=== PATIENT | female | born 1970 | race Caucasian/White ===

== ENCOUNTER 2019-05-20 10:27 | Inpatient (IN) ==
--- NOTE | 2019-05-20 10:59 | ERNOTE ---
Lower Extremity HPI - Narrative Date of Service: 05/20/19 - General Lower Extremities Pain: leg: right Time Seen by Provider: 05/20/19 10:52 Source: patient Exam Limitations: no limitations - Immun/Allergies/Home Medications Immunizations: IMMUNIZATION HX Immunizations Up to Date Yes History of Influenza Vaccine Yes Hx Pneumococcal Vaccination No Allergies/Adverse Reactions: Allergies Allergy/AdvReac Type Severity Reaction Status Date / Time onion Allergy Severe anaphylacti Verified 05/20/19 10:54 c peanut Allergy Severe anaphylacti Verified 05/20/19 10:54 c aspirin AdvReac Intermediate tunnel Verified 05/20/19 10:54 vision aloe vera AdvReac rash Verified 05/20/19 10:54 animal dander AdvReac RASH Verified 05/20/19 10:54 escitalopram [From Lexapro] AdvReac mental Verified 05/20/19 10:54 changes grass pollen AdvReac rash Verified 05/20/19 10:54 montelukast [From Singulair] AdvReac mental Verified 05/20/19 10:54 status changes naltrexone AdvReac foggy, Verified 05/20/19 10:54 inability to focus wool AdvReac rash Verified 05/20/19 10:54 Home Medications: HOME MEDICATIONS diphenhydramine HCl 25 mg capsule 25 mg PO Q6H PRN cap 03/14/18 [Last Taken 01/20/19] medroxyprogesterone 150 mg/mL intramuscular syringe 150 mg IM [id number] 03/14/18 [Last Taken 01/20/19] naproxen sodium 220 mg tablet 220 mg PO BID 03/14/18 [Last Taken 05/19/19] epinephrine 0.3 mg/0.3 mL injection, auto-injector 0.3 mg IM Q10M PRN #2 ea 03/17/18 [Last Taken Unknown] fluticasone 250 mcg-salmeterol 50 mcg/dose blistr powdr for inhalation 1 inh IH BID #60 ea 03/17/18 [Last Taken 04/20/19] fluticasone propionate 50 mcg/actuation nasal spray,suspension 2 spray ABHILASH DAILY #9.9 g 03/17/18 [Last Taken 04/20/19] loratadine 10 mg tablet 10 mg PO DAILY #30 tab 03/17/18 [Last Taken 03/21/19] Albuterol Sulfate [Proair Hfa] 1 - 2 puff INHALATION Q4H PRN #1 inhaler 07/24/18 [Last Taken 01/20/19] albuterol sulfate 2.5 mg IH QID PRN #75 ml 10/24/18 [Last Taken 01/20/19] hydroxyzine HCl 25 mg tablet 25 mg PO QID PRN #120 tab 10/24/18 [Last Taken 05/17/19] tiotropium bromide 18 mcg capsule with inhalation device 1 cap IH DAILY #30 inh 10/24/18 [Last Taken 03/21/19] - Pain Score Pain Score #1 Pain Score: 10 - History of Present Illness Narrative: The patient is a 48 year old female who presents for right lower extremity pain which has been present since Tuesday. There are associated symptoms of chills, subjective fever and fatigue. The patient reports pain to E, 04/26. There are no alleviating factors. There are aggravating factors of activity and weight bearing. Previous treatments have included: Aleve and Tylenol with minimal relief. The past medical history includes: ADHD, asthma and psoriasis. The social history is positive for current tobacco use. The patient has had no ill contacts. Patient denies injury. Patient states that symptoms began with fatigue and chills on Tuesday evening. Patient states she began noticing redness to right lower leg on with gradually progression of redness and pain. Review of Systems - Review of Systems Constitutional: Present: fever, chills, fatigue EYE: Present: no symptoms reported ENT: Present: no symptoms reported. Absent: ear pain, nasal drainage, sore throat Respiratory: Present: cough. Absent: shortness of breath Cardiology: Present: no symptoms reported. Absent: chest pain Gastrointestinal/Abdominal: Present: diarrhea. Absent: nausea, vomiting, abdominal pain Genitourinary: Present: no symptoms reported. Absent: dysuria Skin: Present: change in color Neurological: Present: no symptoms reported All Other Systems: All systems neg except as marked Medical History (Last Reviewed 05/20/19 @ 10:58 by HÉCTOR Dunne) Shoulder pain, right (Resolved) Onset Date: ~2007 work comp Rhinitis (Chronic) Onset Date: ~07/24/15 Psoriasis (Chronic) Onset Date: ~11/24/17 Obesity (Chronic) Onset Date: ~09/16/15 Fatigue (Chronic) Onset Date: ~09/16/15 Excessive daytime sleepiness (Chronic) Onset Date: ~09/16/15 Dry eyes (Chronic) Onset Date: ~08/13/15 Chronic urticaria (Chronic) Onset Date: ~11/24/17 Asthma (Chronic) Onset Date: ~08/13/15 ADHD (Chronic) Onset Date: ~11/24/17 Tobacco abuse Onset Date: ~07/24/15 Surgical History: Surgical History (Last Reviewed 05/20/19 @ 10:58 by HÉCTOR Dunne) History of shoulder surgery Onset Date: ~06/2008 arthroscopic right shoulder. Family History: Family History (Last Reviewed 05/20/19 @ 10:58 by HÉCTOR Dunne) Other No pertinent family history Social History: (Last Reviewed 05/20/19 @ 10:58 by HÉCTOR Dunne) Social History: adopted: Yes Marital status: Single household members: children number of children: 2 current occupational status: unemployed Service: No Tobacco: Smoking Status: Current every day smoker Alcohol: alcohol intake: current Substance Use: substance use type: does not use Dietary Habits: caffeine: Yes Physical Exam - Physical Exam General Appearance: Present: wd/wn, alert, moderate distress Head Exam: Present: normal inspection Eye Exam: Normal inspection: bilateral Neck: Present: normal inspection Respiratory: Present: no respiratory distress, normal breath sounds, no accessory muscle use, lungs clear Cardiovascular/Chest: Present: no murmur, tachycardia Peripheral Pulses: N=norm/S=strong/W=weak/B=bound/A=absent: Dorsalis-pedis (R): Weak Gastrointestinal/Abdominal: Present: normal bowel sounds, nontender, nondistended, soft, no organomegaly Extremity Exam: Present: extremity edema - diffuse 3+ pitting edema to RLE Neurological Exam: Present: alert, oriented, normal mood/affect, no motor/sens ory deficits Skin Exam: Present: normal color, warm/dry, other - circumferential erythema with pinpoint area of weeping clear drainage to anterior lateral mid lower leg, erythema and edema to proximal to mid lower extremity with extention to dorsal foot Progress - Date and Time Seen: Date and Time: 05/20/19 12:30 Reviewed results with patient and due to severity of pain, tachycardia and progression of infection would like to admit for IV hydration and antibiotic therapy. Patient ok with admission. Discussed case with and accepted for admission. Informed that IV Rocephin was initiated in ER and reports will review chart and evaluate patient for need for additional medication. - Results and Orders Patient's Lab Results:: I have reviewed the patient's lab results. - Vital Signs Patient's Vital Signs:: I have reviewed the patient's vital signs. Vital Signs: Vital Signs 05/20/19 10:53 05/20/19 10:55 Temperature 37.5 C Pulse Rate 133 H Respiratory Rate 16 Blood Pressure 164/75 H 164/75 H O2 Sat by Pulse Oximetry 98 - X-Ray X-Ray #1 X-Ray: tibula/fibula Interpretation: Reviewed by me X-ray Comments: IMPRESSION: NO SIGNIFICANT OSSEOUS PATHOLOGY IDENTIFIED. Electronically signed by Pedro Petty M.D.. - Progress/Reassessment Chief Complaint: Lower Extremity Pain/ Injury Progress:: Improved Departure Clinical Impression: Cellulitis Qualifiers: Site of cellulitis: extremity Site of cellulitis of extremity: lower extremity Laterality: right Qualified Code(s): L03.115 - Cellulitis of right lower limb - Departure Disposition: Still a patient Condition: Stable
[2019-05-20] MEDS ORDERED: NORMAL SALINE 1,000 ML IV PRN (11:05)
[2019-05-20] MEDS ORDERED: MORPHINE SULFATE 2 MG/ML DISP.SYRIN IV ONE (11:13)
[2019-05-20 11:19] LABS: Hematocrit 41.9 % (37.0-47.0); Hemoglobin 13.8 gm/dL (12.5-16.0); Mean Cell Volume 86.6 fl (78-100); Mean Corpuscular Hemoglobin 28.5 pg (27-31); Mean Corpuscular Hgb Conc 32.9 g/dl (32-36); Mean Platelet Volume 9.1 fl (8-12.5); Neutrophil # 16.2 K/mm3 (1.3-6.0); Neutrophil % 86.8 % (42-75.0); Platelet Count 292 K/mm3 (150-450); Red Blood Count 4.84 M/mm3 (4.2-5.4); Red Cell Distribution Width 14.1 % (11.5-14.0); White Blood Count 18.6 K/mm3 (4.0-10.5)
[2019-05-20 11:37] LABS: Albumin * 2.8 gm/dl (3.4-5.0); Anion Gap 13.6 mmol/L (6.8-13.8); BUN/Creatinine Ratio 10.4 (9.0-21.6); Bilirubin, Total 0.6 mg/dL (0.0-1.1); Ca. Corrected For Albumin 9.1 mg/dL (8.4-10.2); Calcium * 8.5 mg/dL (7.9-10.9); Carbon Dioxide 25.9 mmol/L (24-32.6); Potassium 3.5 mmol/L (3.4-4.6); Total Protein 8.4 gm/dL (6.2-8.2)
[2019-05-20] MEDS ORDERED: MORPHINE SULFATE 4 MG/ML SYRG IV ONE (11:49)
[2019-05-20] MEDS ORDERED: cefTRIAXone SODIUM 1,000 MG/100 ML BAG IV ONE (12:06)
[2019-05-20] MEDS ORDERED: NORMAL SALINE 1,000 ML IV ONE (12:43)
[2019-05-20] MEDS ORDERED: NON-FORMULARY 1 DOSE DOSE (Albuterol Sulfate 2.5 MG) IH PRN (13:40)
[2019-05-20] MEDS ORDERED: hydrOXYzine HCL 25 MG TABLET PO PRN (13:40)
[2019-05-20] MEDS ORDERED: ALBUTEROL SULFATE 2.5 MG/0.5 ML VIAL.NEB IH PRN (13:40)
[2019-05-20] MEDS ORDERED: CYCLOBENZAPRINE HCL 10 MG TABLET PO PRN (13:40)
[2019-05-20] MEDS ORDERED: oxyCODONE HCL 5 MG TABLET PO PRN (13:48)
[2019-05-20] MEDS: ACETAMINOPHEN 500 MG TABLET PO PRN ×2 (14:09→22:51)
[2019-05-20] MEDS: ENOXAPARIN SODIUM 40 MG/0.4 ML SYRG SC SCH (14:18)
[2019-05-20] MEDS ORDERED: POLYVINYL ALCOHOL 150 DROP BTL OP PRN (14:25)
[2019-05-20] MEDS ORDERED: POLYVINYL ALCOHOL 150 DROP BTL OP SCH (15:00)
--- NOTE | 2019-05-20 15:12 | HP ---
Chief Complaint - Chief Complaint Date of Service: 05/20/19 Time of Service: 14:15 Chief Complaint: Cellulitis right lower extremity History of Present Illness: Patrizia Fagan is a 48-year-old obese white female who had onset of fever and chills and leg pain on Tuesday. Is progressed now to the point she cannot put weightbearing on the right leg because of marked pain there. She is never had DVT before and never had cellulitis before. She has had a fever to 39 C. She has a history of autoimmune disease. She has frequent open sores on her legs and there are several superficial ones on the right lower extremity in the area of cellulitis. The left leg looks normal. Medical History (Last Reviewed 05/20/19 @ 13:42 by Zenobia Garza RN) Shoulder pain, right (Resolved) Onset Date: ~2007 work comp Rhinitis (Chronic) Onset Date: ~07/24/15 Psoriasis (Chronic) Onset Date: ~11/24/17 Obesity (Chronic) Onset Date: ~09/16/15 Fatigue (Chronic) Onset Date: ~09/16/15 Excessive daytime sleepiness (Chronic) Onset Date: ~09/16/15 Dry eyes (Chronic) Onset Date: ~08/13/15 Chronic urticaria (Chronic) Onset Date: ~11/24/17 Asthma (Chronic) Onset Date: ~08/13/15 ADHD (Chronic) Onset Date: ~11/24/17 Tobacco abuse Onset Date: ~07/24/15 Surgical History: Surgical History (Last Reviewed 05/20/19 @ 13:42 by Zenobia Garza RN) History of shoulder surgery Onset Date: ~06/2008 arthroscopic right shoulder. Family History: Family History (Last Reviewed 05/20/19 @ 10:58 by HÉCTOR Dunne) Other No pertinent family history Social History: (Last Reviewed 05/20/19 @ 13:42 by Zenobia Garza RN) Social History: adopted: Yes Marital status: Single household members: children number of children: 2 current occupational status: unemployed Service: No Tobacco: Smoking Status: Current every day smoker Alcohol: alcohol intake: current Substance Use: substance use type: does not use Dietary Habits: caffeine: Yes Review Of Systems (GEN) - Review of Systems Generalized/Overall Review: Present: Weakness, Chills, Fever, Malaise EENTM: Present: Eye Pain - She uses eyedrops as needed. Respiratory: Present: No Symptoms Reported Cardiac: Present: No Symptoms Reported Abdominal: Present: No Symptoms Reported Genitourinary: Present: No Symptoms Reported Musculoskeletal: Present: No Symptoms Reported Neurological: Present: No Symptoms Reported Skin: Present: Other - Erythema with palpable fever, edema, and pain on palpation in the right lower extremity below the knee. Immunizations: IMMUNIZATION HX Immunizations Up to Date Yes History of Influenza Vaccine Yes Hx Pneumococcal Vaccination No Allergies/Adverse Reactions: Allergies Allergy/AdvReac Type Severity Reaction Status Date / Time onion Allergy Severe anaphylacti Verified 05/20/19 10:54 c peanut Allergy Severe anaphylacti Verified 05/20/19 10:54 c aspirin AdvReac Intermediate tunnel Verified 05/20/19 10:54 vision aloe vera AdvReac rash Verified 05/20/19 10:54 animal dander AdvReac RASH Verified 05/20/19 10:54 escitalopram [From Lexapro] AdvReac mental Verified 05/20/19 10:54 changes grass pollen AdvReac rash Verified 05/20/19 10:54 montelukast [From Singulair] AdvReac mental Verified 05/20/19 10:54 status changes naltrexone AdvReac foggy, Verified 05/20/19 10:54 inability to focus wool AdvReac rash Verified 05/20/19 10:54 Home Medications: HOME MEDICATIONS diphenhydramine HCl 25 mg capsule 25 mg PO Q6H PRN cap 03/14/18 [Last Taken Unknown] medroxyprogesterone 150 mg/mL intramuscular syringe 150 mg IM [id number] 03/14/18 [Last Taken Unknown] naproxen sodium 220 mg tablet 220 mg PO BID 03/14/18 [Last Taken Unknown] polyvinyl alcohol-povidone 0.5 %-0.6 % eye drops drp OP Q2HWA ml 03/14/18 [Last Taken Unknown] epinephrine 0.3 mg/0.3 mL injection, auto-injector 0.3 mg IM Q10M PRN #2 ea 03/17/18 [Last Taken Unknown] fluticasone 250 mcg-salmeterol 50 mcg/dose blistr powdr for inhalation 1 inh IH BID #60 ea 03/17/18 [Last Taken Unknown] fluticasone propionate 50 mcg/actuation nasal spray,suspension 2 spray ABHILASH DAILY #9.9 g 03/17/18 [Last Taken Unknown] loratadine 10 mg tablet 10 mg PO DAILY #30 tab 03/17/18 [Last Taken Unknown] Albuterol Sulfate [Proair Hfa] 1 - 2 puff INHALATION Q4H PRN #1 inhaler 07/24/18 [Last Taken Unknown] albuterol sulfate 2.5 mg IH QID PRN #75 ml 10/24/18 [Last Taken Unknown] betamethasone valerate 0.1 % topical cream 1 applic TP BID #45 g 10/24/18 [Last Taken Unknown] cyclobenzaprine 5 mg tablet 5 mg PO TID PRN #30 tab 10/24/18 [Last Taken Unknown] hydroxyzine HCl 25 mg tablet 25 mg PO QID PRN #120 tab 10/24/18 [Last Taken Unknown] tiotropium bromide 18 mcg capsule with inhalation device 1 cap IH DAILY #30 inh 10/24/18 [Last Taken Unknown] Exam - Exam Vital Signs: Vital Signs - Last Taken Temp 39.2 C H 05/20/19 13:24 Pulse 122 H 05/20/19 13:24 Resp 25 H 05/20/19 13:24 BP 115/72 05/20/19 13:24 Pulse Ox 98 05/20/19 12:33 Constitutional: Present: Alert, Oriented x3, Cooperative, Well developed, Well nourished, No distress ENT Exam: Present: normal ENT inspection, hearing grossly normal, pharynx normal Eye Exam: bilateral eye: normal inspection, PERRL, EOMI, other - Conjunctival erythema Neck: Present: non-tender, full range of motion, supple, normal inspection, trachea midline Back Exam: Present: normal inspection, no CVA tenderness, no vertebral tenderness Breasts: Present: Exam deferred, Nontender Respiratory: Present: chest non-tender, lungs clear, normal breath sounds, no re spiratory distress, no accessory muscle use Cardiovascular/Chest: Present: normal peripheral pulses, regular rate, rhythm, no chest tenderness, edema - In the right lower extremity Peripheral Pulses: carotid (R): 2+, carotid (L): 2+, dorsalis-pedis (R): 2+, dorsalis-pedis (L): 2+, radial (R): 2+, radial (L): 2+ Abdomen: Present: Normal bowel sounds, soft, nontender, nondistended, no rebound tenderness, no hepatospenomegaly, no masses, obese /Rectal: Present: Exam deferred Extremity: Present: normal range of motion, inflammation, lower extremity edema, leg pain, swelling - All in the right lower extremity Skin Exam: Present: normal color, other - Erythema in the right lower extremity Lymphatic: Present: no adenopathy Neurologic: 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: 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 tested, normal cerebellar test, no motor/sensory deficits, alert, normal mood/affect, oriented x 3 Appearance: Present: appropriate appearance, appropriate insight, neat, no memory impairment Eye contact: Present: cooperative, good eye contact, normal speech Thoughts: Present: normal thought pattern, no apparent hallucination Diagnostic Studies: Abnormal Lab Results 05/20/19 05/20/19 Range/Units 11:11 11:11 WBC 18.6 H (4.0-10.5) K/mm3 RDW 14.1 H (11.5-14.0) % Immature Gran # (Auto) 0.08 H (0.000-0.0310) K/mm3 Neutrophils % 86.8 H (42-75.0) % Lymphocytes % 6.3 L (20-51) % Neutrophils # 16.2 H (1.3-6.0) K/mm3 Lymphocytes # 1.17 L (1.5-3.5) k/mm3 Monocytes # 1.1 H (0.0-1.0) k/mm3 Est GFR (Non-Af Amer) 59 L (60-130) mL/min Random Glucose 120 H (70-110) mg/dL ALT 17 L (19-67) U/L Alkaline Phosphatase 187 H (50-170) U/L C-Reactive Prot, Quant 48.0 H (0.0-0.9) mg/dL Total Protein 8.4 H (6.2-8.2) gm/dL Albumin 2.8 L (3.4-5.0) gm/dl Laboratory Results WBC 18.6 K/mm3 (4.0-10.5) H 05/20/19 11:11 RBC 4.84 M/mm3 (4.2-5.4) 05/20/19 11:11 Hgb 13.8 gm/dL (12.5-16.0) 05/20/19 11:11 Hct 41.9 % (37.0-47.0) 05/20/19 11:11 MCV 86.6 fl (78-100) 05/20/19 11:11 MCH 28.5 pg (27-31) 05/20/19 11:11 MCHC 32.9 g/dl (32-36) 05/20/19 11:11 RDW 14.1 % (11.5-14.0) H 05/20/19 11:11 Plt Count 292 K/mm3 (150-450) 05/20/19 11:11 MPV 9.1 fl (8-12.5) 05/20/19 11:11 Immature Gran % (Auto) 0.40 % (0.001-0.429) 05/20/19 11:11 Immature Gran # (Auto) 0.08 K/mm3 (0.000-0.0310) H 05/20/19 11:11 Neutrophils % 86.8 % (42-75.0) H 05/20/19 11:11 Lymphocytes % 6.3 % (20-51) L 05/20/19 11:11 Monocytes % 6.1 % (0.0-9) 05/20/19 11:11 Eosinophils % 0.2 % (0.0-3.0) 05/20/19 11:11 Basophils % 0.2 % (0.0-1.0) 05/20/19 11:11 Nucleated RBC % 0.0 k/mm3 (0-1) 05/20/19 11:11 Neutrophils # 16.2 K/mm3 (1.3-6.0) H 05/20/19 11:11 Lymphocytes # 1.17 k/mm3 (1.5-3.5) L 05/20/19 11:11 Monocytes # 1.1 k/mm3 (0.0-1.0) H 05/20/19 11:11 Eosinophils # 0.0 k/mm3 (0.0-0.7) 05/20/19 11:11 Absolute Basophils 0.0 k/mm3 (0.0-0.1) 05/20/19 11:11 Sodium 133 mmol/L (132-142) 05/20/19 11:11 Plasma Sodium 133 mmol/L (130-142) 05/20/19 11:11 Potassium 3.5 mmol/L (3.4-4.6) D 05/20/19 11:11 Chloride 97 mmol/L (97-106) 05/20/19 11:11 Carbon Dioxide 25.9 mmol/L (24-32.6) 05/20/19 11:11 Anion Gap 13.6 mmol/L (6.8-13.8) 05/20/19 11:11 BUN 11 mg/dL (3-23) 05/20/19 11:11 Creatinine 1.06 mg/dL (0.4-1.4) 05/20/19 11:11 Est GFR (Non-Af Amer) 59 mL/min (60-130) L 05/20/19 11:11 BUN/Creatinine Ratio 10.4 (9.0-21.6) 05/20/19 11:11 Random Glucose 120 mg/dL (70-110) H 05/20/19 11:11 Lactic Acid, Venous 2.0 mmol/L (0.4-2.0) 05/20/19 11:11 Calcium 8.5 mg/dL (7.9-10.9) 05/20/19 11:11 Calcium Adj for Albumin 9.1 mg/dL (8.4-10.2) 05/20/19 11:11 Total Bilirubin 0.6 mg/dL (0.0-1.1) 05/20/19 11:11 AST 17 U/L (0-48) 05/20/19 11:11 ALT 17 U/L (19-67) L 05/20/19 11:11 Alkaline Phosphatase 187 U/L (50-170) H 05/20/19 11:11 Creatine Kinase 39 U/L (0-259) 05/20/19 11:11 C-Reactive Prot, Quant 48.0 mg/dL (0.0-0.9) H 05/20/19 11:11 Total Protein 8.4 gm/dL (6.2-8.2) H 05/20/19 11:11 Albumin 2.8 gm/dl (3.4-5.0) L 05/20/19 11:11 Assessment/Plan - Narrative Narrative: 1. IV Rocephin 1 g twice daily 2. Hydromorphone 4 mg every 4 hours as needed pain. Note she has a hypersensitivity reaction to hydrocodone, oxycodone, and codeine. She was given 4 mg of morphine in the emergency room which she tolerated well but she says did not help her pain any. 3. Keep leg elevated 4. Anticoagulate with enoxaparin 5. Borders of the cellulitis have been marked for reference comparison starting tomorrow. - Assessment/Plan (1) Musculoskeletal pain Problem: Acute (2) Cellulitis Problem: Acute Qualifiers: Site of cellulitis: extremity Site of cellulitis of extremity: lower extremity Laterality: right Qualified Code(s): L03.115 - Cellulitis of right lower limb (3) Psoriasis Problem: Chronic (4) Dry eyes Problem: Chronic
[2019-05-20] MEDS: FLUTICASONE PROPION/SALMETEROL 14 PUFF DISK.W.DEV IH SCH (21:06)
[2019-05-20] MEDS: BETAMETHASONE VALERATE 15 APPL TUBE TP SCH (21:12)
[2019-05-20] MEDS: HYDROmorphone HCL 2 MG TABLET PO PRN (21:16)
[2019-05-21] MEDS: HYDROmorphone HCL 2 MG TABLET PO PRN ×3 (04:55→20:13)
[2019-05-21] MEDS: BETAMETHASONE VALERATE 15 APPL TUBE TP SCH ×2 (08:05→20:14)
[2019-05-21] MEDS: FLUTICASONE PROPION/SALMETEROL 14 PUFF DISK.W.DEV IH SCH ×2 (08:05→20:14)
[2019-05-21] MEDS: ACETAMINOPHEN 500 MG TABLET PO PRN ×2 (08:05→23:32)
[2019-05-21] MEDS: LORATADINE 10 MG TABLET PO SCH (08:06)
[2019-05-21] MEDS: TIOTROPIUM BROMIDE 5 CAP INHALER IH SCH (08:06)
[2019-05-21] MEDS: FLUTICASONE PROPIONATE 120 SPRAY INHALER NS SCH (08:06)
--- NOTE | 2019-05-21 08:50 | PN ---
Subjective - Date and Time Seen Date: 05/21/19 Time: 08:41 Objective - Review of Systems Generalized/Overall Review: Reports: Chills, Fever, Fatigue EENTM: Reports: No Symptoms Reported Respiratory: Reports: No Symptoms Reported Cardiac: Reports: No Symptoms Reported Abdominal: Reports: No Symptoms Reported Genitourinary Symptoms: Reports: No Symptoms Reported Musculoskeletal Complaints: Reports: Other - Right lower extremity patient pain and tenderness Neurological: Reports: No Symptoms Reported Skin: Reports: Change in Color, Other - Significant erythema and tenderness of right lower extremity Endocrine: Reports: No Symptoms Reported - Vitals Vitals: Last Vital Signs Temp 38.2 C H 05/21/19 06:50 Pulse 117 H 05/21/19 06:50 Resp 12 05/21/19 06:50 BP 95/54 05/21/19 06:50 Pulse Ox 93 05/21/19 06:50 - Abnormal Lab Findings Abnormal Lab Findings: Abnormal Lab Results 05/20/19 05/20/19 Range/Units 11:11 11:11 WBC 18.6 H (4.0-10.5) K/mm3 RDW 14.1 H (11.5-14.0) % Immature Gran # (Auto) 0.08 H (0.000-0.0310) K/mm3 Neutrophils % 86.8 H (42-75.0) % Lymphocytes % 6.3 L (20-51) % Neutrophils # 16.2 H (1.3-6.0) K/mm3 Lymphocytes # 1.17 L (1.5-3.5) k/mm3 Monocytes # 1.1 H (0.0-1.0) k/mm3 Est GFR (Non-Af Amer) 59 L (60-130) mL/min Random Glucose 120 H (70-110) mg/dL ALT 17 L (19-67) U/L Alkaline Phosphatase 187 H (50-170) U/L C-Reactive Prot, Quant 48.0 H (0.0-0.9) mg/dL Total Protein 8.4 H (6.2-8.2) gm/dL Albumin 2.8 L (3.4-5.0) gm/dl - Exam Constitutional: Present: Alert, Oriented x3, Cooperative, Well developed, Well nourished, No distress ENT Exam: Present: normal ENT inspection, hearing grossly normal, pharynx normal, TMs normal Breasts: Present: Exam deferred Respiratory: Present: chest non-tender, lungs clear, normal breath sounds, no respiratory distress, no accessory muscle use Cardiovascular/Chest: Present: normal peripheral pulses, regular rate, rhythm, no chest tenderness, no edema, no gallop, no JVD, no murmur, no rub Abdomen: Present: Normal bowel sounds, soft, nontender, nondistended, no rebound tenderness, no hepatospenomegaly, obese /Rectal: Present: Exam deferred Extremity: Present: normal range of motion, no calf tenderness, normal capillary refill, inflammation, lower extremity edema, leg pain, pedal edema, other - Circumferential erythematous, tender, warm to touch, with 3+ pedal edema with adequate pulse of the right lower extremity. 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 However multiple patient continues to be acutely ill multiple fever spikes were reported throughout the night and patient still complains of chills. Her demarcated area of cellulitis of the right lower extremity demonstrate decrease of the infected area and erythema, however she is significantly tender to light touch and appears to be in pain and uncomfortable. Follow-up labs has been ordered to evaluate leukocytosis however given the extent of the patient's infection is apparent that she will need multiple days of inpatient treatment with IV antibiotics. Patient has not shown improvement on observation status, therefore we will switch her IV antibiotic to include coverage for MRSA as well as gram negatives and keep her for additional days in the hospital. Patient's toes. And interdigital spaces were examined at bedside during today's rounds but no port of entry was discovered. She denies being treated for cellulitis in the past. - Problems/Diagnosis (1) Cellulitis of right lower extremity Problem: Acute
[2019-05-21 08:56] LABS: Hematocrit 35.2 % (37.0-47.0); Hemoglobin 11.4 gm/dL (12.5-16.0); Mean Cell Volume 86.5 fl (78-100); Mean Corpuscular Hgb Conc 32.4 g/dl (32-36); Mean Platelet Volume 9.2 fl (8-12.5); Neutrophil # 11.3 K/mm3 (1.3-6.0); Neutrophil % 82.9 % (42-75.0); Platelet Count 235 K/mm3 (150-450); Red Blood Count 4.07 M/mm3 (4.2-5.4); Red Cell Distribution Width 14.2 % (11.5-14.0); White Blood Count 13.6 K/mm3 (4.0-10.5)
[2019-05-21 09:20] LABS: Albumin * 2.1 gm/dl (3.4-5.0); Anion Gap 14.4 mmol/L (6.8-13.8); Bilirubin, Total 0.3 mg/dL (0.0-1.1); Ca. Corrected For Albumin 9.3 mg/dL (8.4-10.2); Calcium * 8.1 mg/dL (7.9-10.9); Carbon Dioxide 24.9 mmol/L (24-32.6); Potassium 3.3 mmol/L (3.4-4.6)
[2019-05-21] MEDS: CEFTAROLINE FOSAMIL ACETATE 600 MG in DEXTROSE 5 % IN WATER 100 ML IV SCH ×4 (09:33→20:14)
[2019-05-21] MEDS: ENOXAPARIN SODIUM 40 MG/0.4 ML SYRG SC SCH (13:03)
--- NOTE | 2019-05-21 14:42 | PN ---
Subjective - Date and Time Seen Date: 05/21/19 Time: 10:30 Subjective Narrative: Kimberly had some fever early this morning to 38.2 but has been afebrile the rest of the day. She still having a lot of pain when weightbearing on the right leg. Physical therapy has worked with her today and she is walking with a walker albeit with discomfort. She is having some stair safety training today. There is seems to be some interval improvement in the appearance of the leg is that the erythema has contracted away from the ink demarcated margins. There is still fever, calor, rubor, dolor present. The white count was 18,600 on admission and is 13,600 this morning. Hemoglobin is dropped from 13.8g to 11.4 g this morning. Objective - Review of Systems Generalized/Overall Review: Reports: Weakness, Fever EENTM: Reports: No Symptoms Reported Respiratory: Reports: No Symptoms Reported, Cough Cardiac: Reports: No Symptoms Reported Abdominal: Reports: No Symptoms Reported Genitourinary Symptoms: Reports: No Symptoms Reported Musculoskeletal Complaints: Reports: Other - Right lower leg pain Neurological: Reports: No Symptoms Reported Skin: Reports: Other - Cellulitis right lower extremity Endocrine: Reports: No Symptoms Reported - Vitals Vitals: Last Vital Signs Temp 36.7 C 05/21/19 14:29 Pulse 114 H 05/21/19 14:29 Resp 20 05/21/19 14:29 BP 107/60 05/21/19 14:29 Pulse Ox 95 05/21/19 14:29 - Abnormal Lab Findings Abnormal Lab Findings: Abnormal Lab Results 05/21/19 05/21/19 Range/Units 08:54 08:54 WBC 13.6 H D (4.0-10.5) K/mm3 RBC 4.07 L (4.2-5.4) M/mm3 Hgb 11.4 L (12.5-16.0) gm/dL Hct 35.2 L (37.0-47.0) % RDW 14.2 H (11.5-14.0) % Immature Gran # (Auto) 0.05 H (0.000-0.0310) K/mm3 Neutrophils % 82.9 H (42-75.0) % Lymphocytes % 9.0 L (20-51) % Neutrophils # 11.3 H (1.3-6.0) K/mm3 Lymphocytes # 1.22 L (1.5-3.5) k/mm3 Potassium 3.3 L (3.4-4.6) mmol/L Anion Gap 14.4 H (6.8-13.8) mmol/L Random Glucose 172 H D (70-110) mg/dL ALT 11 L (19-67) U/L Albumin 2.1 L (3.4-5.0) gm/dl - Exam Constitutional: Present: Alert, Oriented x3, Cooperative, Well developed, Well nourished, Mild distress ENT Exam: Present: normal ENT inspection, hearing grossly normal, pharynx normal Neck: Present: non-tender, full range of motion, supple, normal inspection, trachea midline Breasts: Present: Exam deferred Respiratory: Present: chest non-tender, lungs clear, normal breath sounds, no respiratory distress, no accessory muscle use Cardiovascular/Chest: Present: normal peripheral pulses, regular rate, rhythm, no chest tenderness, no edema, no gallop, no JVD, no murmur, no rub Abdomen: Present: Normal bowel sounds, soft, nontender, nondistended, no rebound tenderness, no hepatospenomegaly, no masses /Rectal: Present: Exam deferred, External genitalia normal Extremity: Present: normal range of motion, calf tenderness, inflammation, lower extremity edema, leg pain Skin Exam: Present: normal color - Except over the right lower extremity which is a deep red to violaceous color. Lymphatic: Present: no adenopathy Appearance: Present: appropriate appearance, appropriate insight, neat, no memory impairment Eye contact: Present: cooperative, good eye contact, normal speech Thoughts: Present: normal thought pattern, no apparent hallucination Assessment/Plan - Problems/Diagnosis (1) Musculoskeletal pain Problem: Acute (2) Cellulitis Problem: Acute Qualifiers: Site of cellulitis: extremity Site of cellulitis of extremity: lower extremity Laterality: right Qualified Code(s): L03.115 - Cellulitis of right lower limb (3) Psoriasis Problem: Chronic (4) Dry eyes Problem: Chronic
[2019-05-22 06:25] LABS: Hematocrit 32.9 % (37.0-47.0); Hemoglobin 10.8 gm/dL (12.5-16.0); Mean Cell Volume 86.8 fl (78-100); Mean Corpuscular Hemoglobin 28.5 pg (27-31); Mean Corpuscular Hgb Conc 32.8 g/dl (32-36); Mean Platelet Volume 9.3 fl (8-12.5); Neutrophil % 76.1 % (42-75.0); Platelet Count 245 K/mm3 (150-450); Red Blood Count 3.79 M/mm3 (4.2-5.4); Red Cell Distribution Width 14.3 % (11.5-14.0); White Blood Count 10.5 K/mm3 (4.0-10.5)
[2019-05-22] MEDS: HYDROmorphone HCL 2 MG TABLET PO PRN ×3 (08:15→20:43)
[2019-05-22] MEDS: LORATADINE 10 MG TABLET PO SCH (08:16)
[2019-05-22] MEDS: FLUTICASONE PROPIONATE 120 SPRAY INHALER NS SCH (08:20)
[2019-05-22] MEDS: FLUTICASONE PROPION/SALMETEROL 14 PUFF DISK.W.DEV IH SCH ×2 (08:20→20:44)
[2019-05-22] MEDS: TIOTROPIUM BROMIDE 5 CAP INHALER IH SCH (08:21)
[2019-05-22] MEDS: BETAMETHASONE VALERATE 15 APPL TUBE TP SCH ×2 (08:22→20:44)
[2019-05-22] MEDS: CEFTAROLINE FOSAMIL ACETATE 600 MG in DEXTROSE 5 % IN WATER 100 ML IV SCH ×4 (08:25→20:50)
[2019-05-22] MEDS: ENOXAPARIN SODIUM 40 MG/0.4 ML SYRG SC SCH (13:19)
[2019-05-22] MEDS: ACETAMINOPHEN 500 MG TABLET PO PRN ×2 (14:28→20:44)
--- NOTE | 2019-05-22 18:32 | PN ---
Subjective - Date and Time Seen Date: 05/22/19 Time: 08:10 Subjective Narrative: Kimberly had fever to 38.1 again last night. She also continues to have severe pain in that right lower extremity below the knee. It does not appear any worse. X-ray done in the emergency room did not show any bony injury or periosteal changes. The admitting diagnosis included sepsis and almost certainly came from the infection and her right lower extremity. The blood cultures are no growth at 48 hours x 2. She still cannot stand and bear weight on that right leg. She is learning to use a walker. One will be delivered from [facility] tomorrow if she is going home tomorrow. Objective - Review of Systems Generalized/Overall Review: Reports: No Symptoms Reported EENTM: Reports: No Symptoms Reported Respiratory: Reports: No Symptoms Reported Cardiac: Reports: No Symptoms Reported Abdominal: Reports: No Symptoms Reported Genitourinary Symptoms: Reports: No Symptoms Reported Musculoskeletal Complaints: Reports: Other - Cellulitis right lower extremity Neurological: Reports: No Symptoms Reported Skin: Reports: No Symptoms Reported Endocrine: Reports: No Symptoms Reported - Vitals Vitals: Last Vital Signs Temp 36.8 C 05/22/19 17:10 Pulse 91 05/22/19 17:10 Resp 20 05/22/19 17:10 BP 140/78 H 05/22/19 17:49 Pulse Ox 93 05/22/19 17:10 - Abnormal Lab Findings Abnormal Lab Findings: Abnormal Lab Results 05/22/19 05/22/19 Range/Units 06:15 06:15 RBC 3.79 L (4.2-5.4) M/mm3 Hgb 10.8 L (12.5-16.0) gm/dL Hct 32.9 L (37.0-47.0) % RDW 14.3 H (11.5-14.0) % Immature Gran % (Auto) 0.60 H (0.001-0.429) % Immature Gran # (Auto) 0.06 H (0.000-0.0310) K/mm3 Neutrophils % 76.1 H (42-75.0) % Lymphocytes % 12.3 L (20-51) % Neutrophils # 8.0 H (1.3-6.0) K/mm3 Lymphocytes # 1.29 L (1.5-3.5) k/mm3 C-Reactive Prot, Quant 35.7 H (0.0-0.9) mg/dL - EKG/Xray Findings EKG read: Reviewed by me XRAY: leg - Exam Constitutional: Present: Alert, Oriented x3, Cooperative, Well developed, Well nourished, Moderate distress ENT Exam: Present: normal ENT inspection, hearing grossly normal, pharynx normal, TMs normal Neck: Present: non-tender, full range of motion, supple, normal inspection Breasts: Present: Exam deferred Respiratory: Present: chest non-tender, lungs clear, normal breath sounds Cardiovascular/Chest: Present: normal peripheral pulses, regular rate, rhythm, no chest tenderness, no edema, no gallop, no JVD, no murmur, no rub Abdomen: Present: Normal bowel sounds, soft, nontender, nondistended, no rebound tenderness, no hepatospenomegaly, no masses /Rectal: Present: Exam deferred Extremity: Present: non-tender, other - Rubor, calor, fever, dolor, persist in the right lower extremity with no evidence of interval improvement. 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 Continue current IV antibiotic therapy. Continue to try to progress with weight and weightbearing on the right leg. Monitor temperature through the night. - Problems/Diagnosis (1) Musculoskeletal pain Problem: Acute (2) Cellulitis Problem: Acute Qualifiers: Site of cellulitis: extremity Site of cellulitis of extremity: lower extremity Laterality: right Qualified Code(s): L03.115 - Cellulitis of right lower limb (3) Psoriasis Problem: Chronic (4) Dry eyes Problem: Chronic (5) Sepsis Problem: Acute Qualifiers: Sepsis type: sepsis due to unspecified organism Sepsis acute organ dysfunction status: without acute organ dysfunction Qualified Code(s): A41.9 - Sepsis, unspecified organism
[2019-05-23] MEDS: HYDROmorphone HCL 2 MG TABLET PO PRN ×4 (03:29→22:07)
[2019-05-23] MEDS: ACETAMINOPHEN 500 MG TABLET PO PRN ×3 (03:34→14:39)
[2019-05-23] MEDS: CEFTAROLINE FOSAMIL ACETATE 600 MG in DEXTROSE 5 % IN WATER 100 ML IV SCH ×4 (08:34→21:26)
[2019-05-23] MEDS: FLUTICASONE PROPION/SALMETEROL 14 PUFF DISK.W.DEV IH SCH ×2 (08:40→21:26)
[2019-05-23] MEDS: FLUTICASONE PROPIONATE 120 SPRAY INHALER NS SCH (08:43)
[2019-05-23] MEDS: LORATADINE 10 MG TABLET PO SCH (08:44)
[2019-05-23] MEDS: TIOTROPIUM BROMIDE 5 CAP INHALER IH SCH (08:45)
[2019-05-23] MEDS: BETAMETHASONE VALERATE 15 APPL TUBE TP SCH ×2 (08:51→21:26)
[2019-05-23 09:33] LABS: Hematocrit 34.6 % (37.0-47.0); Hemoglobin 11.4 gm/dL (12.5-16.0); Mean Cell Volume 86.7 fl (78-100); Mean Corpuscular Hemoglobin 28.6 pg (27-31); Mean Corpuscular Hgb Conc 32.9 g/dl (32-36); Mean Platelet Volume 9.3 fl (8-12.5); Platelet Count 328 K/mm3 (150-450); Red Blood Count 3.99 M/mm3 (4.2-5.4); Red Cell Distribution Width 14.2 % (11.5-14.0)
[2019-05-23 09:39] LABS: Anion Gap 10.7 mmol/L (6.8-13.8); BUN/Creatinine Ratio 16.4 (9.0-21.6); Bilirubin, Total 0.2 mg/dL (0.0-1.1); Ca. Corrected For Albumin 9.7 mg/dL (8.4-10.2); Calcium * 8.4 mg/dL (7.9-10.9); Carbon Dioxide 27.9 mmol/L (24-32.6); Potassium 3.6 mmol/L (3.4-4.6); Total Protein 7.3 gm/dL (6.2-8.2)
[2019-05-23 09:40] LABS: Total Cells Counted 100
[2019-05-23 09:54] LABS: Atypical (Reactive) Lymph 3 % (0-2); Band 3 % (0-2.0); Eosinophil 4 % (0-3); Lymphocyte 20 % (20-51); Monocyte 7 % (0-9); Neutrophil 63 % (42-75)
[2019-05-23 09:57] LABS: Platelet Estimate Normal (NORMAL); RBC Morphology Normal (NORMAL)
[2019-05-23 10:37] LABS: CRP 23.7 mg/dL (0.0-0.9)
[2019-05-23] MEDS: ENOXAPARIN SODIUM 40 MG/0.4 ML SYRG SC SCH (15:39)
--- NOTE | 2019-05-23 20:31 | PN ---
Subjective - Date and Time Seen Date: 05/23/19 Time: 09:15 Subjective Narrative: Kimberly continues to have severe pain in her right lower leg to the point that she cannot bear weight on that leg and is using a walker to get back in fourth to the bathroom. She is now been on IV antibiotics for about 5 days. The leg has a clear yellow oval-shaped area in the middle of the rubor. It is soft and fluctuant. I reviewed the x-ray done in the emergency room and it does not show any bony injury. Nonetheless because of the persistent extended nature of her severe pain in this leg I think I should rule out an abscess. Especially given the change in color of the leg as described above. The MRI was performed and findings are just consistent with severe cellulitis of the leg with dissection of the fascial planes and muscle planes. There is no abscess. I have enco uraged her to get up and walk even though it hurts because I really believe that will speed the healing process. She is going to try to do that. I told her to take her pain medicine before doing so. Anticipate discharging her tomorrow. Objective - Review of Systems Generalized/Overall Review: Reports: No Symptoms Reported EENTM: Reports: No Symptoms Reported Respiratory: Reports: No Symptoms Reported Cardiac: Reports: No Symptoms Reported Abdominal: Reports: No Symptoms Reported Genitourinary Symptoms: Reports: No Symptoms Reported Musculoskeletal Complaints: Reports: Muscle Pain - See chief complaint regarding cellulitis right lower extremity Neurological: Reports: No Symptoms Reported Skin: Reports: Change in Color - There is some change in color of the anterolateral right arndt area. Endocrine: Reports: No Symptoms Reported - Vitals Vitals: Last Vital Signs Temp 37.2 C 05/23/19 17:21 Pulse 98 05/23/19 17:21 Resp 16 05/23/19 17:21 BP 102/70 05/23/19 17:21 Pulse Ox 94 05/23/19 17:21 - Abnormal Lab Findings Abnormal Lab Findings: Abnormal Lab Results 05/23/19 05/23/19 05/23/19 Range/Units 09:22 09:22 09:22 RBC 3.99 L (4.2-5.4) M/mm3 Hgb 11.4 L (12.5-16.0) gm/dL Hct 34.6 L (37.0-47.0) % RDW 14.2 H (11.5-14.0) % Band Neuts % (Manual) 3 H (0-2.0) % Eosinophils % (Manual) 4 H (0-3) % Atypic/Reactive Lymphs 3 H (0-2) % ESR 112 H (0-15) mm/hr Random Glucose 123 H (70-110) mg/dL C-Reactive Prot, Quant 23.7 H (0.0-0.9) mg/dL Albumin 2.0 L (3.4-5.0) gm/dl - Exam Constitutional: Present: Alert, Oriented x3, Cooperative, Well developed, Well nourished, Moderate distress - With weightbearing. Without weightbearing she is only in mild distress., Middle aged, Obese ENT Exam: Present: normal ENT inspection, hearing grossly normal, pharynx normal, TMs normal Neck: Present: non-tender, full range of motion, supple Breasts: Present: Exam deferred Respiratory: Present: chest non-tender Cardiovascular/Chest: Present: normal peripheral pulses Abdomen: Present: Normal bowel sounds /Rectal: Present: Exam deferred - Swelling, redness, fever, pain all in the right lower extremity. 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 Continue IV antibiotics 2. Progress activity 3. Plan on discharging tomorrow - Problems/Diagnosis (1) Musculoskeletal pain Problem: Acute (2) Cellulitis Problem: Acute Qualifiers: Site of cellulitis: extremity Site of cellulitis of extremity: lower extremity Laterality: right Qualified Code(s): L03.115 - Cellulitis of right lower limb (3) Psoriasis Problem: Chronic (4) Dry eyes Problem: Chronic (5) Sepsis Problem: Acute Qualifiers: Sepsis type: sepsis due to unspecified organism Sepsis acute organ dysfunction status: without acute organ dysfunction Qualified Code(s): A41.9 - Sepsis, unspecified organism
[2019-05-24] MEDS: HYDROmorphone HCL 2 MG TABLET PO PRN ×2 (04:32→12:54)
[2019-05-24] MEDS: ACETAMINOPHEN 500 MG TABLET PO PRN ×2 (04:36→13:27)
[2019-05-24] MEDS: FLUTICASONE PROPIONATE 120 SPRAY INHALER NS SCH (09:07)
[2019-05-24] MEDS: LORATADINE 10 MG TABLET PO SCH (09:07)
[2019-05-24] MEDS: BETAMETHASONE VALERATE 15 APPL TUBE TP SCH ×2 (09:07→20:20)
[2019-05-24] MEDS: CEFTAROLINE FOSAMIL ACETATE 600 MG in DEXTROSE 5 % IN WATER 100 ML IV SCH ×4 (09:13→20:20)
[2019-05-24] MEDS: TIOTROPIUM BROMIDE 5 CAP INHALER IH SCH (09:14)
[2019-05-24] MEDS: FLUTICASONE PROPION/SALMETEROL 14 PUFF DISK.W.DEV IH SCH ×2 (09:14→20:20)
[2019-05-24] MEDS: ENOXAPARIN SODIUM 40 MG/0.4 ML SYRG SC SCH (12:57)
--- NOTE | 2019-05-24 17:46 | CONS ---
HPI - General Date of Service: 05/24/19 Source: patient Exam Limitations: no limitations - History of Present Illness Initial Comments: Patrizia is a pleasant 48-year-old female who developed leg pain and swelling on Tuesday. She also developed fevers and chills. This occurred on her right leg. She is concerned she may have had a spider bite. She had pain so significant it was difficult for her to bear weight on the right leg. She was admitted to the hospital and started on IV antibiotics. She also had leukocytosis. Her leukocytosis has improved. The erythema has receded. Timing/Duration: 1 week Severity: moderate Modifying Factors - (Worsens): Reports: movement Modifying Factors - (Improves): Reports: immobilization, medication Associated Symptoms: denies symptoms Allergies/Adverse Reactions: Allergies onion Allergy (Severe, Verified 05/20/19 10:54) anaphylactic peanut Allergy (Severe, Verified 05/20/19 10:54) anaphylactic aspirin Adverse Reaction (Intermediate, Verified 05/20/19 10:54) tunnel vision aloe vera Adverse Reaction (Verified 05/20/19 10:54) rash animal dander Adverse Reaction (Verified 05/20/19 10:54) RASH escitalopram [From Lexapro] Adverse Reaction (Verified 05/20/19 10:54) mental changes grass pollen Adverse Reaction (Verified 05/20/19 10:54) rash montelukast [From Singulair] Adverse Reaction (Verified 05/20/19 10:54) mental status changes naltrexone Adverse Reaction (Verified 05/20/19 10:54) foggy, inability to focus wool Adverse Reaction (Verified 05/20/19 10:54) rash Home Medications: Home Medications Medication Instructions Recorded Last Taken diphenhydramine HCl 25 mg capsule 25 mg PO Q6H PRN cap 03/14/18 01/20/19 medroxyprogesterone 150 mg/mL 150 mg IM [id number] 03/14/18 01/20/19 intramuscular syringe naproxen sodium 220 mg tablet 220 mg PO BID 03/14/18 05/19/19 epinephrine 0.3 mg/0.3 mL 0.3 mg IM Q10M PRN #2 ea 03/17/18 Unknown injection, auto-injector fluticasone 250 mcg-salmeterol 50 1 inh IH BID #60 ea 03/17/18 04/20/19 mcg/dose blistr powdr for inhalation fluticasone propionate 50 2 spray ABHILASH DAILY #9.9 g 03/17/18 04/20/19 mcg/actuation nasal spray,suspension loratadine 10 mg tablet 10 mg PO DAILY #30 tab 03/17/18 03/21/19 Albuterol Sulfate [Proair Hfa] 1 - 2 puff INHALATION Q4H PRN #1 07/24/18 01/20/19 inhaler albuterol sulfate 2.5 mg IH QID PRN #75 ml 10/24/18 01/20/19 hydroxyzine HCl 25 mg tablet 25 mg PO QID PRN #120 tab 10/24/18 05/17/19 tiotropium bromide 18 mcg capsule 1 cap IH DAILY #30 inh 10/24/18 03/21/19 with inhalation device Procedures Other monitoring (01/09/06) Medications - Medications Current Medications: Current Medications Acetaminophen (Tylenol) 500 mg PO Q4H PRN PRN Reason: Mild pain (pain scale 1-3) Stop: 06/19/19 13:48 Last Admin: 05/24/19 13:27 Dose: 500 mg Documented by: Betamethasone Valerate (Betamethasone Valerate Cream) 1 appl TP BID EMERY Stop: 06/19/19 21:01 Last Admin: 05/24/19 09:07 Dose: 1 appl Documented by: Cyclobenzaprine HCl (Flexeril) 5 mg PO TID PRN PRN Reason: muscle spasm Last Admin: 05/20/19 14:09 Dose: 5 mg Documented by: Enoxaparin Sodium (Lovenox) 40 mg SC Q24H EMERY Stop: 06/19/19 13:46 Last Admin: 05/24/19 12:57 Dose: 40 mg Documented by: Fluticasone Propionate (Flonase) 2 spray NS DAILY EMERY Stop: 06/20/19 09:01 Last Admin: 05/24/19 09:07 Dose: 2 spray Documented by: Hydromorphone HCl (Dilaudid) 4 mg PO Q6H PRN PRN Reason: Pain Stop: 06/19/19 14:16 Last Admin: 05/24/19 12:54 Dose: 4 mg Documented by: Sodium Chloride (Sodium Chloride 0.9%) 1,000 mls @ 999 mls/hr IV .Q1H1M PRN PRN Reason: HYDRATION Stop: 06/19/19 11:06 Last Infusion: 05/20/19 12:19 Dose: Infused Documented by: Ceftaroline Fosamil 600 mg/ (Dextrose/Water) 120 mls @ 200 mls/hr IV Q12H [facility] Stop: 06/20/19 08:46 Last Infusion: 05/24/19 09:49 Dose: Infused Documented by: Loratadine (Claritin) 10 mg PO DAILY EMERY Stop: 06/20/19 09:01 Last Admin: 05/24/19 09:07 Dose: 10 mg Documented by: Fluticasone/Salmeterol (Advair 250-50 Diskus) 1 puff IH BID [facility] Stop: 06/19/19 21:01 Last Admin: 05/24/19 09:14 Dose: 1 puff Documented by: Tiotropium [place] (Spiriva) 1 cap IH DAILY EMERY Stop: 06/20/19 09:01 Last Admin: 05/24/19 09:14 Dose: 1 cap Documented by: Review of Systems - Review of Systems Generalized/Overall Review: Present: Weakness, Chills, Fever, Malaise EENTM: Present: No Symptoms Reported Respiratory: Present: No Symptoms Reported Cardiac: Present: No Symptoms Reported Abdominal: Present: No Symptoms Reported Genitourinary: Present: No Symptoms Reported Musculoskeletal: Present: Other - Right lower extremity pain Neurological: Present: No Symptoms Reported Skin: Present: No Symptoms Reported Endocrine: Present: No Symptoms Reported Physical Examination - Exam Vital Signs: Vital Signs - Last Taken Temp 36.5 C 05/24/19 15:08 Pulse 84 05/24/19 10:00 Resp 24 H 05/24/19 15:08 BP 111/77 05/24/19 15:08 Pulse Ox 97 05/24/19 15:08 O2 Oxygen Delivery Method Room Air Constitutional: Present: Alert, Oriented x3, Cooperative, Obese ENT Exam: Present: hearing grossly normal Eye Exam: bilateral eye: normal inspection Neck: Present: supple Breasts: Present: Exam deferred Respiratory: Present: normal breath sounds, no respiratory distress, no accessory muscle use Cardiovascular/Chest: Absent: no edema - Edema in right lower extremity Abdomen: Present: soft, nondistended, obese /Rectal: Present: Exam deferred Extremity: Present: lower extremity edema - Right lower extremity, leg pain - Right lower extremity, other - Erythema with bullae development of the right lower extremity, erythema is receding 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
[2019-05-24] MEDS: KETOROLAC TROMETHAMINE 30 MG/ML VIAL IV PRN (18:51)
--- NOTE | 2019-05-24 20:07 | PN ---
Subjective - Date and Time Seen Date: 05/24/19 Time: 13:15 Subjective Narrative: Patrizia continues to have severe pain in her right lower leg and cannot bear weight on that. She has been on IV antibiotics for nearly a week and most other parameters have improved including her white count and the generalized erythema of the leg. Nonetheless the central area of the redness deep violaceous area and a small vesicle this about 1.5 x 2 cm in size. I have asked Dr. Zhong to see her in consultation to make sure she does not think any thing surgical should be done. She has done that. I reviewed her notes and it is most appreciated hopefully she will be better tomorrow and can go home. She concurs that we should continue with medical management her lab work remains essentially normal. White count has been normalized. Objective - Review of Systems Generalized/Overall Review: Reports: Malaise EENTM: Reports: No Symptoms Reported Respiratory: Reports: No Symptoms Reported Cardiac: Reports: No Symptoms Reported Abdominal: Reports: No Symptoms Reported Genitourinary Symptoms: Reports: No Symptoms Reported Musculoskeletal Complaints: Reports: Other - Right lower extremity pain due to cellulitis Neurological: Reports: No Symptoms Reported Skin: Reports: Other - The skin over the right lower arndt is still reddened with a violaceous hue and a central vesicle as described above. It is extremely tender and she cannot bear weight. Endocrine: Reports: No Symptoms Reported - Vitals Vitals: Last Vital Signs Temp 36.5 C 05/24/19 19:16 Pulse 98 05/24/19 19:16 Resp 20 05/24/19 19:16 BP 124/79 05/24/19 19:16 Pulse Ox 97 05/24/19 19:16 - EKG/Xray Findings XRAY: leg - I have reviewed the MRI of her right lower extremity which shows marked cellulitis but no abscess. - Exam Constitutional: Present: Alert, Oriented x3, Cooperative, Well developed, Well nourished, Moderate distress ENT Exam: Present: normal ENT inspection, hearing grossly normal, pharynx normal, TMs normal Neck: Present: non-tender, full range of motion, supple, normal inspection Breasts: Present: Exam deferred Respiratory: Present: chest non-tender, lungs clear, normal breath sounds, no respiratory distress, no accessory muscle use Cardiovascular/Chest: Present: normal peripheral pulses, regular rate, rhythm, no chest tenderness, no edema - Except in the right lower extremity there is swelling due to the cellulitis, no gallop, no JVD, no murmur, no rub Abdomen: Present: Normal bowel sounds, soft, nontender, nondistended, no rebound tenderness, no hepatospenomegaly, no masses /Rectal: Present: Exam deferred Extremity: Present: normal capillary refill, inflammation, lower extremity edema - In the right lower extremity due to cellulitis., swelling Skin Exam: Present: normal color - Except the right lower extremity Lymphatic: Present: no adenopathy 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 Surgical consultation with Dr. Zhong 2. Continue IV antibiotic therapy 3. I gave a dose of Toradol to see if that would help her walk easier. Results are not known at this dictation. 4. Progress activity as pain allows. 5. Hopefully discharge tomorrow. - Problems/Diagnosis (1) Sepsis Problem: Resolved Qualifiers: Sepsis type: sepsis due to unspecified organism Sepsis acute organ dysfunction status: without acute organ dysfunction Qualified Code(s): A41.9 - Sepsis, unspecified organism (2) Cellulitis Problem: Acute Qualifiers: Site of cellulitis: extremity Site of cellulitis of extremity: lower extremity Laterality: right Qualified Code(s): L03.115 - Cellulitis of right lower limb (3) Pain of right anterior lower extremity Problem: Acute (4) Musculoskeletal pain Problem: Acute (5) Psoriasis Problem: Chronic (6) Dry eyes Problem: Chronic
[2019-05-25] MEDS: KETOROLAC TROMETHAMINE 30 MG/ML VIAL IV PRN ×3 (03:55→19:03)
--- NOTE | 2019-05-25 08:21 | PN ---
Dictated Progress Note - Date and Time Seen: Date: 05/25/19 Time: 08:18 - Progress Note Narrative: Slowly improved, can do toe touch now with wt bearing. Pain slowly getting better Vital Signs - Last Taken Temp 36.0 C 05/25/19 06:33 Pulse 75 05/25/19 06:33 Resp 16 05/25/19 06:33 BP 97/60 05/25/19 06:33 Pulse Ox 97 05/25/19 06:33 NAD erythema is receding, bullae is forming in center of wound, no fluctuance or area to be drained skin warm and dry resp non labored ROS: see HPI Imp: cellulitis- improving Plan: continue antibiotics continue to increase ambulation on lovenox
[2019-05-25 08:43] LABS: Hematocrit 36.4 % (37.0-47.0); Mean Cell Volume 88.1 fl (78-100); Mean Corpuscular Hemoglobin 29.1 pg (27-31); Mean Platelet Volume 9.1 fl (8-12.5); Neutrophil # 5.6 K/mm3 (1.3-6.0); Neutrophil % 67.8 % (42-75.0); Platelet Count 391 K/mm3 (150-450); Red Blood Count 4.13 M/mm3 (4.2-5.4); Red Cell Distribution Width 14.2 % (11.5-14.0); White Blood Count 8.3 K/mm3 (4.0-10.5)
[2019-05-25 08:49] LABS: Albumin * 2.1 gm/dl (3.4-5.0); Anion Gap 12.7 mmol/L (6.8-13.8); Bilirubin, Total 0.2 mg/dL (0.0-1.1); Ca. Corrected For Albumin 9.6 mg/dL (8.4-10.2); Calcium * 8.4 mg/dL (7.9-10.9); Carbon Dioxide 27.4 mmol/L (24-32.6); Potassium 4.1 mmol/L (3.4-4.6); Total Protein 7.8 gm/dL (6.2-8.2)
[2019-05-25] MEDS: BETAMETHASONE VALERATE 15 APPL TUBE TP SCH ×2 (09:09→20:38)
[2019-05-25] MEDS: LORATADINE 10 MG TABLET PO SCH (09:09)
[2019-05-25] MEDS: FLUTICASONE PROPION/SALMETEROL 14 PUFF DISK.W.DEV IH SCH ×2 (09:09→20:37)
[2019-05-25] MEDS: CEFTAROLINE FOSAMIL ACETATE 600 MG in DEXTROSE 5 % IN WATER 100 ML IV SCH ×4 (09:09→20:42)
[2019-05-25] MEDS: FLUTICASONE PROPIONATE 120 SPRAY INHALER NS SCH (09:10)
[2019-05-25] MEDS: TIOTROPIUM BROMIDE 5 CAP INHALER IH SCH (09:10)
[2019-05-25] MEDS: ACETAMINOPHEN 500 MG TABLET PO PRN (10:07)
[2019-05-25] MEDS ORDERED: IBUPROFEN 800 MG TABLET PO PRN (13:03)
[2019-05-25] MEDS: ENOXAPARIN SODIUM 40 MG/0.4 ML SYRG SC SCH (13:49)
[2019-05-25] MEDS: HYDROmorphone HCL 2 MG TABLET PO PRN (16:44)
--- NOTE | 2019-05-25 17:59 | PN ---
Subjective - Date and Time Seen Date: 05/25/19 Time: 07:50 Subjective Narrative: I seen Kimberly 3 times today hoping that she would have improved enough to go home. She did have a breakthrough and some progress today. When she gets out of bed and first stands up she has a lot of pain in the leg. After showering she was able to walk back with full weightbearing on her leg for the first time in about a week. But is not stated that good through the afternoon and this evening she still having a lot of pain even with touch toe weightbearing. She does not tolerate ibuprofen well because it causes her to menstruate. She takes Depo-Provera injections for that but ibuprofen letter have breakthrough bleeding anyway. Not so with naproxen sodium. She is done well respiratory kothari and is remained on her respiratory therapy medicines including albuterol and Spiriva etc. Today's blood work shows a white count is normal, hemoglobin hematocrit platelets are all normal. Chemistries are unremarkable. Sed rate is down from 112 yesterday to 102 today reflecting a large amount of inflammation still. Toradol seems to give her quite a lot of relief IV and thinks it works better than even the Dilaudid does. This evening I have given her the choice of going home or not. She is going home to a house to be by herself and still unable to consistently bear weight on her right leg. I recommended she stay the night and try again tomorrow. Dr. Carpio will manage her in my absence this weekend. She can be dismissed tomorrow if appropriate. Objective - Review of Systems Generalized/Overall Review: Reports: No Symptoms Reported EENTM: Reports: No Symptoms Reported Respiratory: Reports: Cough, Wheezing Cardiac: Reports: No Symptoms Reported Abdominal: Reports: No Symptoms Reported Genitourinary Symptoms: Reports: No Symptoms Reported Musculoskeletal Complaints: Reports: No Symptoms Reported Neurological: Reports: No Symptoms Reported Skin: Reports: Other - Cellulitis in the right lower extremity. Otherwise normal. Endocrine: Reports: No Symptoms Reported Misc: All systems neg except as marked - Vitals Vitals: Last Vital Signs Temp 36.7 C 05/25/19 15:13 Pulse 93 05/25/19 15:13 Resp 16 05/25/19 15:13 BP 105/69 05/25/19 15:13 Pulse Ox 97 05/25/19 15:13 - Abnormal Lab Findings Abnormal Lab Findings: Abnormal Lab Results 05/25/19 05/25/19 05/25/19 Range/Units 08:13 08:13 08:13 RBC 4.13 L (4.2-5.4) M/mm3 Hgb 12.0 L (12.5-16.0) gm/dL Hct 36.4 L (37.0-47.0) % RDW 14.2 H (11.5-14.0) % Immature Gran % (Auto) 2.20 H (0.001-0.429) % Immature Gran # (Auto) 0.18 H (0.000-0.0310) K/mm3 Eosinophils % 3.4 H (0.0-3.0) % ESR 108 H (0-15) mm/hr Albumin 2.1 L (3.4-5.0) gm/dl - Exam Constitutional: Present: Alert, Oriented x3, Cooperative, Well developed, Well nourished, Mild distress ENT Exam: Present: normal ENT inspection, hearing grossly normal, pharynx normal, TMs normal Neck: Present: non-tender, full range of motion, supple, normal inspection Breasts: Present: Exam deferred Respiratory: Present: chest non-tender, lungs clear, normal breath sounds, no respiratory distress, no accessory muscle use Cardiovascular/Chest: Present: normal peripheral pulses, regular rate, rhythm, no chest tenderness, no gallop, no JVD, no murmur, no rub, edema - Right lower extremity Abdomen: Present: Normal bowel sounds, soft, nontender, nondistended, no rebound tenderness, no hepatospenomegaly, no masses /Rectal: Present: Exam deferred Extremity: Present: normal range of motion, non-tender, normal inspection, normal capillary refill, lower extremity edema - Right side only Skin Exam: Present: normal color - Except for the right lower extremity, warm/dry, no cyanosis Lymphatic: Present: no adenopathy Neurologic: Present: can runner II-XII nml as tested Appearance: Present: appropriate appearance, appropriate insight, neat, no memory impairment Eye contact: Present: cooperative, good eye contact, normal speech Thoughts: Present: normal thought pattern, no apparent hallucination Assessment/Plan Plan Narrative: 1. Continue IV antibiotics 2. Hot shower in the morning to see if it will help the leg 3. Dr. Carpio to manage in my absence. - Problems/Diagnosis (1) Sepsis Problem: Resolved Qualifiers: Sepsis type: sepsis due to unspecified organism Sepsis acute organ dysfunction status: without acute organ dysfunction Qualified Code(s): A41.9 - Sepsis, unspecified organism (2) Cellulitis Problem: Acute Qualifiers: Site of cellulitis: extremity Site of cellulitis of extremity: lower extremity Laterality: right Qualified Code(s): L03.115 - Cellulitis of right lower limb (3) Pain of right anterior lower extremity Problem: Acute (4) Musculoskeletal pain Problem: Acute (5) Psoriasis Problem: Chronic (6) Dry eyes Problem: Chronic
[2019-05-25] MEDS: NAPROXEN SODIUM 550 MG TABLET PO SCH (19:49)
[2019-05-26 06:12] LABS: Hematocrit 36.1 % (37.0-47.0); Hemoglobin 11.7 gm/dL (12.5-16.0); Mean Cell Volume 87.6 fl (78-100); Mean Corpuscular Hemoglobin 28.4 pg (27-31); Mean Corpuscular Hgb Conc 32.4 g/dl (32-36); Neutrophil # 6.5 K/mm3 (1.3-6.0); Neutrophil % 67.6 % (42-75.0); Platelet Count 412 K/mm3 (150-450); Red Blood Count 4.12 M/mm3 (4.2-5.4); Red Cell Distribution Width 14.1 % (11.5-14.0); White Blood Count 9.6 K/mm3 (4.0-10.5)
[2019-05-26 06:32] LABS: Albumin * 2.3 gm/dl (3.4-5.0); Anion Gap 14.5 mmol/L (6.8-13.8); BUN/Creatinine Ratio 18.9 (9.0-21.6); Bilirubin, Total 0.1 mg/dL (0.0-1.1); Ca. Corrected For Albumin 9.7 mg/dL (8.4-10.2); Calcium * 8.7 mg/dL (7.9-10.9); Carbon Dioxide 25.3 mmol/L (24-32.6); Potassium 4.8 mmol/L (3.4-4.6); Total Protein 7.8 gm/dL (6.2-8.2)
[2019-05-26] MEDS: KETOROLAC TROMETHAMINE 30 MG/ML VIAL IV PRN ×2 (06:37→12:12)
[2019-05-26] MEDS: NAPROXEN SODIUM 550 MG TABLET PO SCH (07:25)
[2019-05-26] MEDS: FLUTICASONE PROPION/SALMETEROL 14 PUFF DISK.W.DEV IH SCH (08:16)
[2019-05-26] MEDS: CEFTAROLINE FOSAMIL ACETATE 600 MG in DEXTROSE 5 % IN WATER 100 ML IV SCH ×2 (08:16)
[2019-05-26] MEDS: LORATADINE 10 MG TABLET PO SCH (08:17)
[2019-05-26] MEDS: TIOTROPIUM BROMIDE 5 CAP INHALER IH SCH (08:17)
[2019-05-26] MEDS: FLUTICASONE PROPIONATE 120 SPRAY INHALER NS SCH (08:17)
[2019-05-26] MEDS: BETAMETHASONE VALERATE 15 APPL TUBE TP SCH (08:17)
[2019-05-26] MEDS: ACETAMINOPHEN 500 MG TABLET PO PRN (12:11)
[2019-05-26] MEDS: ENOXAPARIN SODIUM 40 MG/0.4 ML SYRG SC SCH (13:40)
--- NOTE | 2019-05-26 13:52 | DS ---
(1) Cellulitis of right lower extremity Problem: Acute (2) Sepsis Problem: Resolved Qualifiers: Sepsis type: sepsis due to unspecified organism Sepsis acute organ dysfunction status: without acute organ dysfunction Qualified Code(s): A41.9 - Sepsis, unspecified organism (3) Psoriasis Problem: Chronic Date of Discharge:: 05/26/19 Description of Stay: Patrizia is a 48 yo female that was admitted with suspected sepsis secondary to right leg cellulitis. She was started on rocephin but had lack of improvement. She was then changed to Teflaro and began to improve. She had blood cultures that were negative x 2. She was having significant pain to right leg. She was given IV toradol and oral dilaudid for pain control. She had continued difficulty ambulating due to severity of leg pain until today. She will be discharged to home. She needs continued antibiotics, will discharge to home to continue on bactrim DS. Will give her oral dilaudid to help with prn pain as her pain is still severe but improved. She will follow up with Dr. Donahue next week. Procedures Performed: none Results and Findings: Lab Pending Results 05/20/19 11:11: WBC 18.6 H, RBC 4.84, Hgb 13.8, Hct 41.9, MCV 86.6, MCH 28.5, MCHC 32.9, RDW 14.1 H, Plt Count 292, MPV 9.1, Immature Gran % (Auto) 0.40, Immature Gran # (Auto) 0.08 H, Neutrophils % 86.8 H, Lymphocytes % 6.3 L, Monocytes % 6.1, Eosinophils % 0.2, Basophils % 0.2, Nucleated RBC % 0.0, Neutrophils # 16.2 H, Lymphocytes # 1.17 L, Monocytes # 1.1 H, Eosinophils # 0.0, Absolute Basophils 0.0 05/20/19 11:11: Sodium 133, Plasma Sodium 133, Potassium 3.5 D, Chloride 97, Carbon Dioxide 25.9, Anion Gap 13.6, BUN 11, Creatinine 1.06, Est GFR (Non-Af Amer) 59 L, BUN/Creatinine Ratio 10.4, Random Glucose 120 H, Calcium 8.5, Calcium Adj for Albumin 9.1, Total Bilirubin 0.6, AST 17, ALT 17 L, Alkaline Phosphatase 187 H, C-Reactive Prot, Quant 48.0 H, Total Protein 8.4 H, Albumin 2.8 L 05/20/19 11:11: Lactic Acid, Venous 2.0 05/20/19 11:11: Creatine Kinase 39 05/21/19 08:54: WBC 13.6 H D, RBC 4.07 L, Hgb 11.4 L, Hct 35.2 L, MCV 86.5, MCH 28.0, MCHC 32.4, RDW 14.2 H, Plt Count 235, MPV 9.2, Immature Gran % (Auto) 0.40, Immature Gran # (Auto) 0.05 H, Neutrophils % 82.9 H, Lymphocytes % 9.0 L, Monocytes % 6.7, Eosinophils % 0.7, Basophils % 0.3, Nucleated RBC % 0.0, Neutrophils # 11.3 H, Lymphocytes # 1.22 L, Monocytes # 0.9, Eosinophils # 0.1, Absolute Basophils 0.0 05/21/19 08:54: Sodium 134, Plasma Sodium 135, Potassium 3.3 L, Chloride 98, Carbon Dioxide 24.9, Anion Gap 14.4 H, BUN 10, Creatinine 0.91, Est GFR (Non-Af Amer) 70, BUN/Creatinine Ratio 11.0, Random Glucose 172 H D, Calcium 8.1, Calcium Adj for Albumin 9.3, Total Bilirubin 0.3, AST 14, ALT 11 L, Alkaline Phosphatase 155, Total Protein 7.0, Albumin 2.1 L 05/22/19 06:15: WBC 10.5 D, RBC 3.79 L, Hgb 10.8 L, Hct 32.9 L, MCV 86.8, MCH 28.5, MCHC 32.8, RDW 14.3 H, Plt Count 245, MPV 9.3, Immature Gran % (Auto) 0.60 H, Immature Gran # (Auto) 0.06 H, Neutrophils % 76.1 H, Lymphocytes % 12.3 L, Monocytes % 8.7, Eosinophils % 2.0, Basophils % 0.3, Nucleated RBC % 0.0, Neutrophils # 8.0 H, Lymphocytes # 1.29 L, Monocytes # 0.9, Eosinophils # 0.2, Absolute Basophils 0.0 05/22/19 06:15: C-Reactive Prot, Quant 35.7 H 05/23/19 09:22: ESR 112 H 05/23/19 09:22: Sodium 136, Plasma Sodium 136, Potassium 3.6, Chloride 101, Carbon Dioxide 27.9, Anion Gap 10.7, BUN 12, Creatinine 0.73, Est GFR (Non-Af Amer) 90 D, BUN/Creatinine Ratio 16.4, Random Glucose 123 H, Calcium 8.4, Calcium Adj for Albumin 9.7, Total Bilirubin 0.2, AST 26, ALT 21, Alkaline Phosphatase 154, C-Reactive Prot, Quant 23.7 H, Total Protein 7.3, Albumin 2.0 L 05/23/19 09:22: WBC 8.0 D, RBC 3.99 L, Hgb 11.4 L, Hct 34.6 L, MCV 86.7, MCH 28.6, MCHC 32.9, RDW 14.2 H, Plt Count 328, MPV 9.3, Neutrophils % (Manual) 63, Band Neuts % (Manual) 3 H, Lymphocytes % (Manual) 20, Monocytes % (Manual) 7, Eosinophils % (Manual) 4 H, Neutrophils # (Manual) 5.0, Lymphocytes # (Manual) 1.6, Monocytes # (Manual) 0.6, Eosinophils # (Manual) 0.3, Atypic/Reactive Lymphs 3 H, Platelet Estimate Normal, RBC Morphology Normal 05/25/19 08:13: ESR 108 H 05/25/19 08:13: WBC 8.3, RBC 4.13 L, Hgb 12.0 L, Hct 36.4 L, MCV 88.1, MCH 29.1, MCHC 33.0, RDW 14.2 H, Plt Count 391, MPV 9.1, Immature Gran % (Auto) 2.20 H, Immature Gran # (Auto) 0.18 H, Neutrophils % 67.8, Lymphocytes % 20.5, Monocytes % 5.5, Eosinophils % 3.4 H, Basophils % 0.6, Nucleated RBC % 0.0, Neutrophils # 5.6, Lymphocytes # 1.69, Monocytes # 0.5, Eosinophils # 0.3, Absolute Basophils 0.1 05/25/19 08:13: Sodium 138, Plasma Sodium 138, Potassium 4.1, Chloride 102, Carbon Dioxide 27.4, Anion Gap 12.7, BUN 15, Creatinine 0.94, Est GFR (Non-Af Amer) 68 D, BUN/Creatinine Ratio 16.0, Random Glucose 107, Calcium 8.4, Calcium Adj for Albumin 9.6, Total Bilirubin 0.2, AST 29, ALT 27, Alkaline Phosphatase 142, Total Protein 7.8, Albumin 2.1 L 05/26/19 05:45: WBC 9.6, RBC 4.12 L, Hgb 11.7 L, Hct 36.1 L, MCV 87.6, MCH 28.4, MCHC 32.4, RDW 14.1 H, Plt Count 412, MPV 9.0, Immature Gran % (Auto) 2.80 H, Immature Gran # (Auto) 0.27 H, Neutrophils % 67.6, Lymphocytes % 18.1 L, Monocytes % 6.6, Eosinophils % 4.2 H, Basophils % 0.7, Nucleated RBC % 0.0, Neutrophils # 6.5 H, Lymphocytes # 1.73, Monocytes # 0.6, Eosinophils # 0.4, Absolute Basophils 0.1 05/26/19 05:45: Sodium 138, Plasma Sodium 138, Potassium 4.8 H, Chloride 103, Carbon Dioxide 25.3, Anion Gap 14.5 H, BUN 17, Creatinine 0.90, Est GFR (Non-Af Amer) 71, BUN/Creatinine Ratio 18.9, Random Glucose 87, Calcium 8.7, Calcium Adj for Albumin 9.7, Total Bilirubin 0.1, AST 25, ALT 26, Alkaline Phosphatase 176 H, Total Protein 7.8, Albumin 2.3 L Discharge Location: Home Disposition: Home self-care Condition: Stable Discharge Activity: Activity as tolerated Discharge Diet: General/regular food Referrals: Suraj Donahue DO [Primary Care Provider] - (Late next week) Problem Oriented Discharge Instructions to Patient/Family: Cellulitis, Adult, [id number] Prescriptions (Any new or edited meds): HYDROmorphone HCL [Dilaudid] 4 mg PO Q6H PRN #40 tab PRN Reason: Pain Transmission Status: Received by [place], [place] Albuterol Sulfate [Proair Hfa] 1 - 2 puff INHALATION Q4H PRN #1 inhaler PRN Reason: Shortness Of Breath Transmission Status: Pending to [place], [place] Complete Home Medications List: Complete Home Medication List: diphenhydramine HCl 25 mg capsule 25 mg PO Q6H PRN cap 03/14/18 medroxyprogesterone 150 mg/mL intramuscular syringe 150 mg IM [id number] 03/14/18 naproxen sodium 220 mg tablet 220 mg PO BID 03/14/18 epinephrine 0.3 mg/0.3 mL injection, auto-injector 0.3 mg IM Q10M PRN #2 ea 03/17/18 fluticasone 250 mcg-salmeterol 50 mcg/dose blistr powdr for inhalation 1 inh IH BID #60 ea 03/17/18 fluticasone propionate 50 mcg/actuation nasal spray,suspension 2 spray ABHILASH DAILY #9.9 g 03/17/18 loratadine 10 mg tablet 10 mg PO DAILY #30 tab 03/17/18 albuterol sulfate 2.5 mg IH QID PRN #75 ml 10/24/18 hydroxyzine HCl 25 mg tablet 25 mg PO QID PRN #120 tab 10/24/18 tiotropium bromide 18 mcg capsule with inhalation device 1 cap IH DAILY #30 inh 10/24/18 Albuterol Sulfate [Proair Hfa] 1 - 2 puff INHALATION Q4H PRN #1 inhaler 05/26/19 HYDROmorphone HCL [Dilaudid] 4 mg PO Q6H PRN #40 tab 05/26/19
[2019-05-26] MEDS ORDERED: FLU VACC QS2019-20(6MOS UP)/PF 60 MCG/0.5 ML SYRINGE IM ONE (14:00)
[2019-05-26 15:08] VITALS: BP 119/81
== END 2019-05-26 15:20 | disposition home or self-care (01) | DRG 872 ==
LOC: ER 10:27 → MS 10:27
PROVIDERS: ADMIT Family Medicine; ATTEND Family Medicine
DX: L03.115 Cellulitis of right lower limb; H04.123 Dry eye syndrome of bilateral lacrimal glands; L40.9 Psoriasis, unspecified; A41.9 Sepsis, unspecified organism; M79.18 Myalgia, other site; Z23 Encounter for immunization; F17.210 Nicotine dependence, cigarettes, uncomplicated; F90.9 Attention-deficit hyperactivity disorder, unspecified type; J45.909 Unspecified asthma, uncomplicated
CPT/HCPCS: 36415; 73590; 73720; 80053; 82550; 83605; 85007; 85025; 85652; 86140; 87040; 90686; 96361; 96365; 96366; 96375; 96376; 97116; 97161; 99284; A9576; G0378